=== PATIENT | female | born 1955 | race Caucasian/White ===

== ENCOUNTER 2017-03-29 19:12 | Emergency (ER) | payer OTHER ==
[2017-03-29 19:32] VITALS: BP 144/81
[2017-03-29] MEDS ORDERED: Acetaminophen/oxyCODONE 325-5 MG Tab PO ONE (20:24)
[2017-03-29] MEDS ORDERED: Ondansetron 4 MG Tab.DIS PO ONE (20:25)
--- NOTE | 2017-03-29 20:30 | EDM.PDOC ---
ED HPI GENERAL MEDICAL PROBLEM - General Chief Complaint: Lower Extremity Injury/Pain Stated Complaint: Ankle injury Time Seen by Provider: 03/29/17 20:24 Source of Information: Reports: Patient History Limitations: Reports: No Limitations - History of Present Illness INITIAL COMMENTS - FREE TEXT/NARRATIVE: 61-year-old female presents the ED with an acute injury to her right ankle that occurred approximate 4 hours ago. She reports they were walking out in [place] on the past when she inadvertently stepped off the path and the foot dropped about a foot interval. This caused an inversion injury to the right ankle and lateral foot. Unable to weight-bear since time of injury. Pain is constant and throbbing. Denies any and any other injuries as she was able to catch onto a nearby fence post and prevent herself from falling. 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: Other (see below) (None.) Right Ankle Pain Score (Numeric/FACES): 7 - Related Data Allergies Allergy/AdvReac Type Severity Reaction Status Date / Time acetaminophen Allergy Vomiting Verified 03/29/17 19:32 [From Tylenol-Codeine] codeine Allergy Vomiting Verified 03/29/17 19:32 [From Tylenol-Codeine] Penicillins Allergy Rash Verified 03/29/17 19:32 Sulfa (Sulfonamide Allergy Rash Verified 03/29/17 19:32 Antibiotics) Home Meds: Home Meds Cholecalciferol (Vitamin D3) [Vitamin D] 1 tab PO DAILY 03/29/17 [History] Esomeprazole [NexIUM] 40 mg PO DAILY 03/29/17 [History] Organic Women's Vitamin 1 tab PO DAILY 03/29/17 [History] Thyroid,Pork [Hertel Thyroid] 90 mg PO DAILY 03/29/17 [History] oxyCODONE HCl/Acetaminophen [Percocet 5-325 mg Tablet] 1 - 2 each PO Q4H PRN # 15 tablet 03/29/17 [Rx] Past Medical History Musculoskeletal History: Reports: Fracture Endocrine/Metabolic History: Reports: Other (See Below) Other Endocrine/Metabolic History: "Hashimotos" - Past Surgical History HEENT Surgical History: Reports: Adenoidectomy, Tonsillectomy Other GI 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" Female Surgical History: Reports: Hysterectomy Musculoskeletal Surgical History: Reports: Other (See Below) Other Musculoskeletal Surgeries/Procedures:: bilateral knee surgeries Social & Family History - Family History Family Medical History: Noncontributory - Tobacco Use Smoking Status *Q: Never Smoker - Recreational Drug Use Recreational Drug Use: No - Living Situation & Occupation Living situation: Reports: Occupation: Employed Review of Systems - Review of Systems Review Of Systems: See Below Constitutional: Reports: No Symptoms Eyes: Reports: No Symptoms Ears: Reports: No Symptoms Nose: Reports: No Symptoms Mouth/Throat: Reports: No Symptoms Respiratory: Reports: No Symptoms Cardiovascular: Reports: No Symptoms GI/Abdominal: Reports: No Symptoms Genitourinary: Reports: No Symptoms Musculoskeletal: Reports: Leg Pain, Foot Pain Skin: Reports: No Symptoms (Right ankle and right foot.) Neurological: Reports: No Symptoms Psychiatric: Reports: No Symptoms ED EXAM, GENERAL - Physical Exam Exam: See Below Exam Limited By: No Limitations General Appearance: Alert, Moderate Distress (In obvious pain and discomfort.) Peripheral Pulses: 2+: Posterior Tibial (L), Posterior Tibial (R), Dorsalis Pedis (L), Dorsalis Pedis (R) Extremities: Other (Examination was limited to the right lower extremity. No pain on from compression of the proximal fibula. However compression of the mid shaft of the tib-fib caused pain in her distal fibula. Marked swelling of the distal fibula compatible with likely fracture. There is ecchymosis and swelling in this area as well as along the dorsal lateral foot. There is also pain on from compression of the metatarsal bones particularly in the distribution of fifth metatarsal head.) Neurological: Alert, Oriented, CN II-XII Intact, Normal Cognition. No: Normal Gait Psychiatric: Normal Affect, Normal Mood Skin Exam: Warm, Dry, Intact, Normal Color, No Rash Course - Vital Signs Last Recorded V/S: Last Vital Signs Temp Pulse 75 03/29/17 19:28 Resp 18 03/29/17 19:28 BP 144/81 H 03/29/17 19:28 Pulse Ox 97 03/29/17 19:28 - Orders/Labs/Meds Orders: Active Orders 24 hr Category Date Time Status Ankle Min 3V Rt [CR] Stat Exams 03/29/17 20:25 Ordered Foot Comp Min 3V Rt [CR] Stat Exams 03/29/17 20:26 Ordered Meds: Medications Discontinued Medications Generic Name Dose Route Start Last Admin Trade Name Te PRN Reason Stop Dose Admin Ondansetron HCl 4 mg 03/29/17 20:25 03/29/17 20:30 Zofran Odt PO 03/29/17 20:26 4 mg ONETIME ONE Administration Oxycodone/Acetaminophen 2 tab 03/29/17 20:24 03/29/17 20:30 Percocet 325-5 Mg PO 03/29/17 20:25 2 tab ONETIME ONE Administration - Radiology Interpretation Free Text/Narrative:: 61-year-old female presents to the ED with an acute injury to her right ankle and lateral dorsal foot. She was walking on a path out in [place] and inadvertently stepped off the path with the foot dropping into a hole about a foot deep. This caused and severe inversion injury to her ankle. Injury occurred 4 hours ago. She is unable to weight-bear. Examination suggest likely distal fibular fracture. Plan x-ray right foot and right ankle. Given Percocet 5 /3/25 milligrams tabs 2 for pain relief with Zofran 4 mg sublingual. - Re-Assessments/Exams Free Text/Narrative Re-Assessment/Exam: 03/29/17 21:03 x-rays of the right ankle and right foot are within normal limits. There is marked soft tissue swelling lateral ankle joint but no fractures identified. It is so swollen that I cannot assess the ligament structure adequately. An [place] wrap on during the day off at night for the next 10 days. Ice pack to the area for one half hour out of every 4 hours. I will discharge her home on Aleve 2 tablets every 8 hours for repeat reduction of pain and inflammation and Percocet 5/325 milligram tablets one or 2 every 4-6 hours for pain relief for the next 2-3 days. 15 tablets were provided. Departure - Departure Time of Disposition: 21:06 Disposition: Home, Self-Care 01 Condition: Fair Clinical Impression: Sprain of ankle, calcaneofibular ligament Qualifiers: Encounter type: initial encounter Laterality: right Qualified Code(s): S93.411A - Sprain of calcaneofibular ligament of right ankle, initial encounter - Discharge Information Prescriptions: oxyCODONE HCl/Acetaminophen [Percocet 5-325 mg Tablet] 1 - 2 each PO Q4H PRN # 15 tablet PRN Reason: pain relief. Forms: ED Department Discharge Additional Instructions: Evaluation in the emergency room tonight in regards to acute injury to the right lateral ankle and dorsal lateral foot. This occurred when you accidentally stepped off a pathogen into it. X-rays of the ankle and foot do not reveal any bony injuries. There is significant sprain strain of the right lateral ligaments supporting the fibula bone to your foot. Treatment is [place] wrap on during the day and off at night although I would advise the [place] wrap on all night tonight. Ice pack to the area for one half hour out of every 4 hours for the next 2 days. Elevate the foot as much as possible for the next 2 days to prevent it from swelling further. Nonweightbearing crutch walking until able to weight-bear without any pain which will usually be 5-6 days. 100 mg every 6 hours or Aleve 2 tablets every 8 hours to reduce pain and inflammation. Percocet tabs 12/11/24 one or 2 every 4-6 hours for pain not relieved by Aleve or Motrin alone. Suggest follow-up with her personal physician to have the ligaments checked in 10 days' time. - My Orders Last 24 Hours: My Active Orders 03/29/17 20:25 Ankle Min 3V Rt [CR] Stat 03/29/17 20:26 Foot Comp Min 3V Rt [CR] Stat - Assessment/Plan Last 24 Hours: My Active Orders 03/29/17 20:25 Ankle Min 3V Rt [CR] Stat 03/29/17 20:26 Foot Comp Min 3V Rt [CR] Stat
--- NOTE | 2017-04-03 10:47 | CR ---
Right ankle: Four views of the right ankle were obtained. Comparison: No previous study. Ankle mortise is symmetric. Soft tissue swelling is identified. No fracture, dislocation or other bony abnormality is seen. Impression: 1. Soft tissue swelling. No bony abnormality is identified on right ankle exam. Diagnostic code #2
--- NOTE | 2017-04-03 10:47 | CR ---
Right foot: Four views of the right foot were obtained. Comparison: No previous foot exam. Cyst is identified within the base of the first metatarsal which appears to be benign and incidental. No calcaneal spurs are seen. Partially fused os navicularis is noted. Lucent lines are seen within the distal calcaneus on the oblique view which are not seen on other views and difficult to exclude fracture near the sustentacular talus. No additional finding is seen. Impression: 1. Possible fracture within the distal calcaneus. CT exam could be obtained to further evaluate. 2. Incidental cyst at the base of the first metatarsal. 3. Soft tissue swelling. Diagnostic code #3
== END 2017-03-29 21:25 | disposition home or self-care (01) ==
LOC: JD.ED 19:12
DX: S93.411A Sprain of calcaneofibular ligament of right ankle, initial encounter (principal); Z88.6 Allergy status to analgesic agent; Z88.5 Allergy status to narcotic agent; Z88.0 Allergy status to penicillin; Z88.2 Allergy status to sulfonamides; Z79.899 Other long term (current) drug therapy; Z90.710 Acquired absence of both cervix and uterus; Z98.890 Other specified postprocedural states; X50.9XXA Other and unspecified overexertion or strenuous movements or postures, initial encounter
CPT/HCPCS: 73610; 73630; 99283; A9270